=== PATIENT | female | born 1985 | race Hispanic/Latino ===

== ENCOUNTER 2018-05-22 13:35 | Emergency (ER) | payer MEDICAID, OTHER ==
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
[2018-05-22] MEDS ORDERED: Ketorolac Tromethamine 30 MG/ML VIAL ONE (16:09)
== END 2018-05-22 17:04 | disposition home or self-care (01) ==
LOC: ERS 13:35
DX: M54.2 Cervicalgia (principal); I10 Essential (primary) hypertension
CPT/HCPCS: 72125; 96372; J1885